=== PATIENT | female | born 1960 | race Caucasian/White ===

== ENCOUNTER → 2018-02-06 | Outpatient (CLI) | payer OTHER ==
[~2018-02-06] MED LIST: ASCO-201 PO; ASCO1CAP7 PO; CALC-852 PO; CEP500 PO; CHOL200022 PO; CHOL500016 PO; FLAX100030 PO; HYDR-4309 PO; KET10 PO; LOR5/325 PO; OMEG-78 PO; PER PO; VITA-131 PO; VITA1CAP46 PO; [UNRECOGNIZED DRUG - CODE] PO
--- NOTE | 2018-02-06 16:12 | RADIOLOGY IMAGING REPORT ---
FACILITY: [facility] - [place] PATIENT NAME: Marina Quezada : 1960 MR: [id number] V: [id number] EXAM DATE: ORDERING PHYSICIAN: FANI HURLEY TECHNOLOGIST: Location: [facility] [place] Patient: Marina Quezada : 1960 Visit/Account:[id number] Date of Sevice: 02/06/2018 THYROID HISTORY: Bilateral multinodular thyroid gland COMPARISON: None. FINDINGS: SIZE: Right lobe: 5.2 x 2.2 x 2.2 cm Left lobe: 5.8 x 2.7 x 2.6 cm Isthmus: 3 mm PARENCHYMA: Heterogeneous bilaterally NODULES: Right lobe: * In the superior pole there is a 1.5 x 1.2 x 1.2 cm complex nodule containing both cystic and solid elements. In the mid right lobe there is a mostly solid nodule containing small cystic components m easuring 1.7 x 1.4 x 1.7 cm. In the inferior right pole there is a hypoechoic nodule with a calcifie d ring measuring 1.1 cm in diameter. Left lobe: * And mid left lobe there is a slightly complex mostly solid well-circumscribed nodule measuring 4.1 x 2 x 2.3 cm. In the inferior left lobe there is a well-circumscribed hypoechoic nodule measuring 8 x 6 x 10 mm. Isthmus: * Along the left-sided isthmus there is a 7 x 4 x 7 mm well-circumscribed hypoechoic nodule VASCULARITY: Within normal limits. ADDITIONAL FINDINGS: None. IMPRESSION: There are multiple bilateral thyroid nodules. The two largest on the right measure 1.7 and 1.5 cm fo r which ultrasound-guided fine-needle aspiration is recommended In the mid left lobe there is a slightly complex dominant nodule measuring 4.17 m in diameter which c ould also be sampled with ultrasound-guided fine-needle aspiration REFERENCE: 2015 [place] [employer] Management Guidelines for Adult Patients with Thyroid Nodules and D ifferentiated Thyroid Cancer: The [place] [employer] Guidelines Task Force on Thyroid Nodul es and Differentiated Thyroid Cancer. SONOGRAPHIC PATTERNS: * Benign: Purely cystic nodules (no solid component); estimated risk of malignancy <1 percent; no bi opsy recommended. * Very Low Suspicion: Spongiform or partially cystic nodules without any of the sonographic features described in low, intermediate, or high suspicion patterns; estimated risk of malignancy <3 percent; consider FNA at > 2 cm (Observation without FNA is also a reasonable option). * Low Suspicion: Isoechoic or hyperechoic solid nodule, or partially cystic nodule with eccentric so lid areas, without microcalcification, irregular margin or ETE (extra-thyroidal extension), or taller than wide shape; estimated risk of malignancy 5-10 percent; recommend FNA at >1.5 cm. * Intermediate Suspicion: Hypoechoic solid nodule with smooth margins without microcalcifications, E TE (extra-thyroidal extension), or taller than wide shape; estimated risk of malignancy 10-20 percent ; recommend FNA at > 1 cm. * High Suspicion: Solid hypoechoic nodule or solid hypoechoic component of a partially cystic nodule with one or more of the following features: irregular margins (infiltrative, microlobulated), microc alcifications, taller than wide shape, rim calcifications with small extrusive soft tissue component, evidence of ETE (extra-thyroidal extension); estimated risk of malignancy >70-90 percent; recommend FNA at > 1 cm. NOTES: * Although a sonographically suspicious subcentimeter thyroid nodule without evidence of extrathyroi dilip extension or sonographically suspicious lymph nodes may be observed with close sonographic follow -up rather than pursuing immediate FNA, patient age and preference may modify decision-making. A > 50% interval increase in nodule volume and/or development of new suspicious sonographic features are felt to be a valid reasons for potential re-aspiration of a nodule previously shown to have benig n FNA cytology. Report Dictated By: Kristal Marte MD at 02/06/2018 4:03 PM Report E-Signed By: Kristal Marte MD at 02/06/2018 4:08 PM WSN:[email or web address]
== END ==
LOC: US 00:33
PROVIDERS: ATTEND Family Medicine
DX: E04.2 Nontoxic multinodular goiter (principal)
CPT/HCPCS: 76536

== ENCOUNTER → 2018-04-03 | Outpatient (CLI) | payer OTHER ==
[~2018-04-03] MED LIST changes: +CLOB59LO4 TP
[2018-04-03 09:25] LABS: INR 1.08
--- NOTE | 2018-04-03 15:23 | RADIOLOGY IMAGING REPORT ---
FACILITY: [facility] PATIENT NAME: Marina Quezada : 1960 MR: [id number] V: [id number] EXAM DATE: ORDERING PHYSICIAN: VITA PEREIRA TECHNOLOGIST: Location: [facility] [place] Patient: Marina Quezada : 1960 Visit/Account:[id number] Date of Sevice: 04/03/2018 Exam type: THYROID BIOPSY FINE NEEDLE ASP History: mulitnodular goiter Comparison: Thyroid ultrasound February 06, 2018. Findings: Informed consent was obtained. Both the right and left sides of the neck were prepped and draped in usual sterile fashion. Following administration of 1% lidocaine as a local anesthesia four separate 25-gauge FNA biopsies were obtained through three thyroid nodules, one in the mid left lobe, one in t he superior right lobe and one in the mid right lobe. The samples were given to the pathology techno logist for processing. The procedure was accomplished without apparent complication. The sonographi c images were saved to PACS. IMPRESSION: 1. Successful sonographically guided FNA biopsy of two right thyroid nodules and one left thyroid no dule Report Dictated By: Kristal Marte MD at 04/03/2018 3:17 PM Report E-Signed By: Kristal Marte MD at 04/03/2018 3:20 PM WSN:[email or web address]
== END ==
LOC: US 08:42
PROVIDERS: ATTEND Otolaryngology
DX: E04.2 Nontoxic multinodular goiter (principal)
CPT/HCPCS: 10022; 36415; 76942; 85610; 85730; 88104; 88172